=== PATIENT | male | born 1980 | race Caucasian/White ===

== ENCOUNTER → 2017-08-24 | Outpatient (CLI) | payer BC ==
[~2017-08-24] MED LIST: KETO10TA PO; ONDA4TAB10 SL; OXYC-737 PO; OXYC-90 PO; TAMS0.4C38 PO
--- NOTE | 2017-08-24 13:57 | DIAGNOSTIC IMAGING REPORT ---
[facility]UB CLINICAL HISTORY: 37 years-old Male presenting with N20.0 [id number]. TECHNIQUE: Single supine view of the abdomen was obtained. COMPARISON: 08/21/[address] from 08/17/2017. FINDINGS: Nonobstructive bowel gas pattern. No gross pneumoperitoneum. Previously noted distal left ureteral calculi are no longer present nor do they project over the bladder lumen. This likely indicates passage. Redemonstration of pelvic phleboliths. No radiographic evidence of renal calculi or right ureteral calculi. Osseous structures normal. IMPRESSION: 1. Interval passage of the previously noted left distal ureteral/bladder calculi. Electronically signed by: Serafin Mccarty M.D. 08/24/2017 1:55 PM Dictated Date/Time: 08/24/2017 1:53 PM
== END | disposition home or self-care (01) ==
LOC: C.RAD 10:50
PROVIDERS: ATTEND Urology
DX: N20.0 Calculus of kidney (principal)

== ENCOUNTER → 2017-08-25 | Day surgery (SDC) | payer BC ==
[2017-08-24 09:52] VITALS: Ht 167.6 cm; Wt 68.2 kg
[~2017-08-25] VITALS: Ht 167.6 cm; Wt 68.2 kg
[~2017-08-25] MED LIST changes: +CIPROFLOXACIN 400MG / D5W IV SCH; +LACTATED RINGER'S 1000ML 1,000 ML IV SCH; -ONDA4TAB10 SL; -OXYC-737 PO
== END | disposition home or self-care (01) ==
LOC: EDSTATUS 13:15 → C.PAT 16:19
PROVIDERS: ATTEND Urology
DX: N20.0 Calculus of kidney (principal); Z53.9 Procedure and treatment not carried out, unspecified reason

== ENCOUNTER → 2017-08-29 | Outpatient (CLI) | payer BC ==
[~2017-08-29] MED LIST changes: -CIPROFLOXACIN 400MG / D5W IV SCH; -LACTATED RINGER'S 1000ML 1,000 ML IV SCH
== END | disposition home or self-care (01) ==
LOC: C.LABSPEC 12:19
PROVIDERS: ATTEND Urology
DX: N20.0 Calculus of kidney (principal)